=== PATIENT | male | born 1950 | race Caucasian/White ===

== ENCOUNTER 2018-08-04 17:11 | Emergency (ER) | payer MEDICARE, OTHER ==
[~2018-08-04] VITALS: Ht 175.3 cm; Wt 65.3 kg
[2018-08-04 17:25] LABS: URINE BILIRUBIN NEGATIVE (Negative); URINE BLOOD NEGATIVE (Negative); URINE CLARITY CLEAR; URINE COLOR YELLOW; URINE GLUCOSE-RANDOM NEGATIVE (Negative); URINE KETONES NEGATIVE (Negative); URINE LEUKOCYTES-REFLEX NEGATIVE (Negative); URINE NITRITE-REFLEX NEGATIVE (Negative); URINE PROTEIN NEGATIVE (Negative); URINE SPECIFIC GRAVITY 1.015 (1.005-1.030); URINE UROBILINOGEN 0.2 E.U./dl (0.2-1.0)
[2018-08-04] MEDS ORDERED: CLEARLAX17 GM PO (17:26)
[2018-08-04] MEDS ORDERED: [UNRECOGNIZED DRUG - OTHER] (17:28)
[2018-08-04] MEDS ORDERED: GLUCOSAMINE HC500 MG PO (17:28)
[2018-08-04] MEDS ORDERED: VITAMIN D3400 UNIT PO (17:28)
[2018-08-04] MEDS ORDERED: [UNRECOGNIZED DRUG - OTHER] (17:29)
[2018-08-04] MEDS ORDERED: [UNRECOGNIZED DRUG - OTHER] (17:31)
[2018-08-04 18:02] LABS: HEMATOCRIT 39.4 % (42.0-52.0); HEMOGLOBIN 13.8 gm/dL (14.0-18.0); MCH 32.1 pg (26.0-34.0); MCV 91.7 fL (80.0-100.0); MPV 8.6 fl. (7.2-11.1); NUCLEATED RBCS 0 /100WBC; PLATELET COUNT* 165 thou/uL (150-400); WBC 6.6 thou/uL (4.0-11.0)
[2018-08-04 18:12] LABS: ALBUMIN 3.5 g/dL (3.4-5.0); CREATININE 0.9 mg/dL (0.6-1.3); POTASSIUM 3.9 mmol/L (3.5-5.1); TOTAL BILIRUBIN 0.5 mg/dL (<0.1-1.0); TOTAL PROTEIN 6.6 g/dL (6.4-8.2)
[2018-08-04 18:33] LABS: ABSOLUTE EOSINOPHILS 0.3 thou/uL (0.0-0.7); ABSOLUTE LYMPHOCYTES 0.9 thou/uL (0.8-5.3); ABSOLUTE MONOCYTES 0.5 thou/uL (0.0-1.2)
[2018-08-04 18:38] LABS: PLATELET ESTIMATE ADEQUATE
[2018-08-04 18:39] LABS: ANISOCYTOSIS Occasional
[2018-08-04 20:34] VITALS: BP 112/76
== END 2018-08-04 20:35 | disposition home or self-care (01) ==
LOC: M.ERS 17:11
PROVIDERS: Nurse Practitioner Family
DX: S29.012A Strain of muscle and tendon of back wall of thorax, initial encounter (principal); R10.31 Right lower quadrant pain; R11.0 Nausea; X58.XXXA Exposure to other specified factors, initial encounter; Y93.89 Activity, other specified; Y92.89 Other specified places as the place of occurrence of the external cause; Y99.8 Other external cause status

== ENCOUNTER → 2020-01-24 | Outpatient (CLI) | payer MEDICARE, OTHER ==
[~2020-01-24] MED LIST: CLEARLAX17 GM PO; GLUCOSAMINE HC500 MG PO; VITAMIN D3400 UNIT PO; [UNRECOGNIZED DRUG - OTHER]; [UNRECOGNIZED DRUG - OTHER]; [UNRECOGNIZED DRUG - OTHER]
== END ==
LOC: M.MRI 08:24
PROVIDERS: ATTEND Internal Medicine
DX: R42 Dizziness and giddiness (principal)

== ENCOUNTER → 2020-07-12 | Outpatient (CLI) | payer MEDICARE, OTHER | LOC: M.RAD 09:34 | PROVIDERS: ATTEND Internal Medicine | DX: R06.02 Shortness of breath (principal); I70.0 Atherosclerosis of aorta ==

== ENCOUNTER → 2020-09-10 | Outpatient (CLI) | payer MEDICARE ==
--- NOTE | 2020-09-10 13:57 | 2DMMODE ---
[place] [address] 2 D/M-MODE ECHOCARDIOGRAM Name: YIFAN HERNÁNDEZ JR Room: [facility]#: [id number] Admission: 09/10/20 Attend Phys: Jb Montejo MD Discharge: Date of : 46 Date of Service: 09/10/20 1357 Report #: [id number] THIS REPORT FOR: cc: Jyoti Sun MD, Lin W. MD Liston, Michael J. MD [facility] ~ APPROVED REPORT Study performed: 09/10/2020 12:14:56 EXAM: Comprehensive 2D, Doppler, and color-flow Echocardiogram Patient Location: Out-Patient BSA: 1.81 HR: 56 bpm BP: 120/70 mmHg Other Information Study Quality: Good Indications Dyspnea 2D Dimensions IVSd: 8.90 (7-11mm) LVOT Diam: 36.79 (18-24mm) LVDd: 43.02 mm PWd: 11.40 (7-11mm) Ascending Ao: 41.36 (22-36mm) LVDs: 24.71 (25-40mm) Aortic Root: 45.77 mm Volumes Left Atrial Volume (Systole) LA ESV Index: 14.00 mL/m2 Aortic Valve AoV Peak Nick.: 0.94 m/s AO Peak Gr.: 3.54 mmHg LVOT Max P.75 mmHg AO Mean Gr.: 2.00 mmHg LVOT Mean P.28 mmHg LVOT Max V: 0.83 m/s AO V2 VTI: 16.92 cm LVOT Mean V: 0.52 m/s BRIJESH (VTI): 10.00 cm2 LVOT V1 VTI: 15.92 cm AI [place]: 1.42 m/s2 AI PHT: 826.35 [place] [address] 2 D/M-MODE ECHOCARDIOGRAM Name: YIFAN HERNÁNDEZ JR Room: [facility]#: [id number] Admission: 09/10/20 Attend Phys: Jb Montejo MD Discharge: Date of : 46 Date of Service: 09/10/20 1357 Report #: [id number] Mitral Valve E/A Ratio: 0.57 MV Decel. Time: 240.35 ms MV E Max Nick.: 0.34 m/s MV PHT: 69.70 ms MVA (PHT): 3.16 cm2 TDI E/Lateral E': 4.86 E/Medial E': 5.67 Medial E' Nick.: 0.06 m/s Lateral E' Nick.: 0.07 m/s Pulmonary Valve PV Peak Nick.: 0.61 m/s PV Peak Gr.: 1.47 mmHg Tricuspid Valve RAP Estimate: 5.00 mmHg TR Peak Gr.: 15.88 mmHg RVSP: 20.88 mmHg PA Pressure: 20.88 mmHg Left Ventricle The left ventricle is normal size. There is normal LV segmental wall motion. There is normal left ventricular wall thickness. Left ventricular systolic function is normal. LVEF is 55-60%. Grade I - abnormal relaxation pattern. Right Ventricle The right ventricle is normal size. The right ventricular systolic function is normal. Atria The left atrium size is normal. The right atrium size is normal. Aortic Valve Aortic valve is mildly calcified. Mild aortic regurgitation. There is no aortic valvular stenosis. Mitral Valve The mitral valve is normal in structure. Mild mitral regurgitation. No evidence of mitral valve stenosis. Tricuspid Valve The tricuspid valve is normal in structure. Mild tricuspid regurgitation. [place] [address] 2 D/M-MODE ECHOCARDIOGRAM Name: BETTYYIFAN PERRY Room: [facility]#: [id number] Admission: 09/10/20 Attend Phys: Jb Montejo MD Discharge: Date of : 46 Date of Service: 09/10/20 1357 Report #: [id number] Pulmonic Valve The pulmonary valve is normal in structure. Mild pulmonic regurgitation. Great Vessels Aortic root is dilated. IVC is normal in size and collapses >50% with inspiration. Pericardium There is no pericardial effusion. <Conclusion> The left ventricle is normal size. There is normal left ventricular wall thickness. Left ventricular systolic function is normal. LVEF is 55-60%. Grade I - abnormal relaxation pattern. Aortic valve is mildly calcified. Mild aortic regurgitation. Mild mitral regurgitation. Mild tricuspid regurgitation. No pulmonary hypertension. IVC is normal in size and collapses >50% with inspiration. Aortic root is dilated. (4.58 cm) <ELECTRONICALLY SIGNED> By: Neymar Mcnair MD, FACC 09/10/20 1357 1357 1357 Neymar Mcnair MD, FACC /INF
== END ==
LOC: M.CRD 12:23
PROVIDERS: ATTEND Internal Medicine Cardiovascular Disease
DX: I08.8 Other rheumatic multiple valve diseases (principal)

== ENCOUNTER → 2020-12-27 | Outpatient (CLI) | payer MEDICARE ==
[2020-12-27 10:15] LABS: CREATININE 0.9 mg/dL (0.6-1.3)
== END ==
LOC: M.LAB 09:50 → M.CT 11:00
PROVIDERS: ATTEND Registered Nurse
DX: Z01.818 Encounter for other preprocedural examination (principal); I77.810 Thoracic aortic ectasia; J98.11 Atelectasis